=== PATIENT | female | born 1960 | race Caucasian/White ===

== ENCOUNTER 2021-07-13 08:58 | Emergency (ER) | payer OTHER ==
[2021-07-13] MEDS ORDERED: Aspirin 81 MG Tab.Chew PO ONE (09:25)
[2021-07-13] MEDS ORDERED: Ketorolac 30 MG/ML SDV IVPUSH SCH (09:30)
[2021-07-13] MEDS ORDERED: Sodium Chloride 0.9% 1,000 ML IV SCH (09:30)
[2021-07-13 12:11] VITALS: BP 136/68; PULSE 72
== END 2021-07-13 12:00 | disposition home or self-care (01) ==
LOC: JD.ED 08:58
DX: R07.89 Other chest pain (principal); E86.0 Dehydration; Z79.82 Long term (current) use of aspirin; Z79.899 Other long term (current) drug therapy
CPT/HCPCS: 36415; 71045; 80053; 83735; 83880; 84484; 85025; 85610; 85730; 86140; 93005; 96374; 99285; A9270; J1885; J7030; 93010

== ENCOUNTER 2021-07-29 06:11 | Emergency (ER) | payer OTHER ==
[2021-07-29 06:22] VITALS: BP 145/77; PULSE 96
[2021-07-29] MEDS ORDERED: Ibuprofen 600 MG Tab PO ONE (07:34)
[2021-07-29] MEDS ORDERED: Orphenadrine 100 MG Tab.ER PO STA (07:34)
== END 2021-07-29 07:58 | disposition home or self-care (01) ==
LOC: JD.ED 06:11
DX: R07.82 Intercostal pain (principal); E78.00 Pure hypercholesterolemia, unspecified; I10 Essential (primary) hypertension; K21.9 Gastro-esophageal reflux disease without esophagitis; Z79.82 Long term (current) use of aspirin; Z79.899 Other long term (current) drug therapy; Z72.0 Tobacco use
CPT/HCPCS: 93005; 99284; A9270; 93010

== ENCOUNTER 2021-08-11 10:40 | Emergency (ER) | payer OTHER ==
[2021-08-11] MEDS ORDERED: Ondansetron 4 MG/2 ML SDV IVPUSH ONE (11:23)
[2021-08-11] MEDS ORDERED: Pantoprazole 40 MG Vial IVPUSH ONE (11:25)
[2021-08-11] MEDS ORDERED: HYDROmorphone 0.5 MG/0.5 ML Syringe IVPUSH ONE (11:25)
[2021-08-11] MEDS ORDERED: Famotidine 20 MG/2 ML SDV IVPUSH ONE (11:25)
[2021-08-11] MEDS ORDERED: Sodium Chloride 0.9% 1,000 ML IV SCH (11:30)
[2021-08-11] MEDS ORDERED: Amoxicillin 500 MG Cap PO ONE (14:08)
[2021-08-11 14:54] VITALS: BP 134/98; PULSE 84
== END 2021-08-11 14:45 | disposition home or self-care (01) ==
LOC: JD.ED 10:40
DX: R07.9 Chest pain, unspecified (principal); E87.1 Hypo-osmolality and hyponatremia; R10.13 Epigastric pain; R10.31 Right lower quadrant pain; R10.32 Left lower quadrant pain; E78.00 Pure hypercholesterolemia, unspecified; I10 Essential (primary) hypertension; K21.9 Gastro-esophageal reflux disease without esophagitis; Z79.82 Long term (current) use of aspirin; Z79.899 Other long term (current) drug therapy; Z72.0 Tobacco use
CPT/HCPCS: 71045; 80053; 83013; 83690; 84484; 85025; 93005; 96374; 96375; 99285; A9270; C9113; J1170; J2405; J3490; J7030; 93010

== ENCOUNTER 2021-08-16 07:15 | Emergency (ER) | payer OTHER ==
[2021-08-16 07:27] VITALS: BP 164/90; PULSE 88
[2021-08-16] MEDS ORDERED: Prochlorperazine 10 MG/2 ML SDV IVPUSH ONE (07:44)
[2021-08-16] MEDS ORDERED: Sodium Chloride 0.9% 1,000 ML IV ONE ×2 (07:45→08:57)
[2021-08-16] MEDS ORDERED: Magnesium Sulfate/Water 2 GM in Premix Bag 1 BAG IV ONE (08:56)
[2021-08-16] MEDS ORDERED: Metoclopramide 10 MG/2 ML SDV IVPUSH ONE (10:44)
== END 2021-08-16 11:51 | disposition home or self-care (01) ==
LOC: JD.ED 07:15
DX: R11.2 Nausea with vomiting, unspecified (principal); E83.42 Hypomagnesemia; E78.00 Pure hypercholesterolemia, unspecified; K21.9 Gastro-esophageal reflux disease without esophagitis; Z79.82 Long term (current) use of aspirin; Z79.899 Other long term (current) drug therapy
CPT/HCPCS: 36415; 76705; 80053; 81001; 83690; 83735; 85025; 87086; 96365; 96366; 96375; 99284; J0780; J2765; J3475; J7030